=== PATIENT | male | born 1985 | race African-American/Black ===

== ENCOUNTER 2019-12-01 22:04 | Emergency (ER) | payer SELFPAY ==
[~2019-12-01] VITALS: Ht 193 cm; Wt 88.0 kg
[2019-12-01 22:16] VITALS: BP 129/79
== END 2019-12-02 01:17 | disposition left against medical advice (07) ==
LOC: ER 22:04
DX: Z53.21 Procedure and treatment not carried out due to patient leaving prior to being seen by health care provider (principal)